=== PATIENT | male | born 1950 | race Caucasian/White ===

== ENCOUNTER 2019-12-22 11:26 | Outpatient (CLI) | payer MEDICARE ==
--- NOTE | 2019-12-22 12:15 | RAD ---
SUPINE ABDOMEN: Date: 12/22/2019 HISTORY: Nephrolithiasis. Ureteral stent. FINDINGS/IMPRESSION: Left double pigtail ureteral stent is noted. Calcific densities overlie the bladder and I cannot excl ude bladder calculi. There are rounded phlebolith type calcifications seen in the peripheral deep pel vis. Bowel gas pattern unremarkable. No definite renal calcification. POS: [facility]
== END 2019-12-22 11:27 | disposition home or self-care (01) ==
LOC: RAD 11:26
PROVIDERS: ATTEND Urology
DX: N20.0 Calculus of kidney (principal); R93.5 Abnormal findings on diagnostic imaging of other abdominal regions, including retroperitoneum; Z96.0 Presence of urogenital implants
CPT/HCPCS: 74018